=== PATIENT | male | born 2005 | race Two or more races ===

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

== ENCOUNTER 2024-09-26 15:39 | Emergency (ER) | payer OTHER, SELFPAY ==
--- NOTE | ~2024-09-26 | CT_ITS ---
CLINICAL HISTORY: abd pain, nausea, and vomiting CT abdomen and pelvis with contrast Comparison: CT/SR - CT ABDOMEN PELVIS WITH IV CONTRAST - 02/12/23 16:[address]/[place]/SR - CT CHEST WITH IV CONTRAST - 02/12/23 16:49 EST Findings: No consolidation or effusion. The gallbladder and solid organs are within normal limits. No renal stones. No bowel obstruction, pneumoperitoneum, or pneumatosis. Pelvic contents unremarkable. Normal appendix. The bones are intact. IMPRESSION: No acute findings. This document has been electronically signed by: Manuel Perkins DO on 09/26/2024 21:04:49
[2024-09-26 16:14] VITALS: BP 115/67; PULSE 95; RESP 16; TEMP 36.1; O2SAT 100; BMI 33.9
--- NOTE | 2024-09-26 16:15 | ED.GENADULT ---
HPI - General Adult General Chief complaint: Abdominal Pain Stated complaint: Lots of vomitting, diarrhea, both arms asleep Time Seen by Provider: 09/26/24 18:12 Source: patient Mode of arrival: ambulatory Limitations: no limitations History of Present Illness ED Provider: Nga Ward PA-C HPI narrative: Patient is a 18 year old male with past medical history of asthma presenting to ER on 09/26 with chief complaint of nausea, vomiting, and diarrhea since yesterday morning. He states his symptoms started yesterday after he ate a bowl of cereal. Since then, he has been able to tolerate PO liquids, but solids cause him to vomit. Last episode of diarrhea was this morning. He has had associated diffuse abdominal pain that he states was relieved by sublingual ondansetron he received in triage. He reports being afebrile at home since yesterday, highest temperature being 99.4 F late last night (note he was febrile to 102.8 F in triage). He has had similar occurrences before, and states he was last seen at [facility] in 2023 and was diagnosed with an umbilical hernia. He believes he was told his umbilical hernia was the cause of his symptoms, and was unsure of the CT scan result, states he was never recommended to have surgery. He denies previous abdominal surgeries. He denies sick contacts or recent travel. He denies recent antibiotic use. He denies hematemesis, hematochezia, melena, dizziness, chest pain, shortness of breath, genitourinary symptoms, or any other symptoms. Onset (ago): day(s) Related Data Previous Rx's ?Medication ?Instructions ?Recorded ibuprofen 600 mg tablet 600 mg PO Q6H PRN pain #20 tabs 07/23/20 lidocaine 5 % topical patch 1 patch topical DAILY #15 ea 01/08/23 (Lidoderm) naproxen 500 mg tablet 500 mg PO Q8-12H PRN pain (scale 01/08/23 score 4-6) #20 tabs ondansetron 4 mg disintegrating 4 mg PO TID PRN nausea and 01/22/23 tablet vomiting 5 days #10 tabs omeprazole 20 mg capsule,delayed 20 mg PO DAILY #30 caps 06/09/23 release ondansetron 4 mg disintegrating 4 mg PO Q8H PRN nausea and 06/09/23 tablet vomiting #20 tabs ondansetron 4 mg disintegrating 4 mg PO Q8H PRN nausea and 09/26/24 tablet vomiting #12 tabs Allergies Allergy/AdvReac Type Severity Reaction Status Date / Time cephalexin (Keflex) Allergy Unknown Hives Verified 09/26/24 16:17 From KEFLEX Allergy Unknown HIVES Uncoded 10/21/23 20:25 mosquitoes Allergy Unknown Hives Uncoded 10/21/23 20:25 Review of Systems Constitutional: Constitutional: Reports no additional constitutional complaints, Denies chills, Denies fever(s) and Denies night sweats Eyes: Eyes: Reports no additional eye complaints, Denies blurry vision, Denies change in vision, Denies diplopia, Denies eye discharge, Denies loss of vision and Denies eye pain ENT: Denies dizziness Cardiovascular: Cardiovascular: Reports no additional cardiovascular complaints, Denies chest pain, Denies lightheadedness, Denies Loss of Consciousness and Denies dyspnea Respiratory: Respiratory: Reports no additional respiratory complaints and Denies dyspnea Gastrointestinal: Gastrointestinal: Reports as per HPI, Reports no additional gastrointestinal complaints, Reports abdominal pain, Denies melena, Denies hematochezia, Reports diarrhea, Reports nausea and Reports vomiting Genitourinary: Genitourinary: Reports no additional male genitourinary complaints, Denies hematuria, Denies oliguria, Denies difficulty urinating, Denies dysuria, Denies urinary frequency, Denies urinary hesitancy, Denies urinary incontinence and Denies urinary urgency Musculoskeletal: Musculoskeletal: Reports no additional musculoskeletal complaints, Denies numbness and Denies tingling Neurologic: Denies dizziness, Denies loss of vision, Denies numbness and Denies tingling Psychiatric: Psychiatric: Reports no additional psychiatric complaints Endocrine: Endocrine: Reports no additional endocrine complaints Hematologic/Lymphatic: Hematologic/Lymphatic: Reports no additional hematologic/lymphatic complaints Allergic/Immunologic: Allergic/Immunologic: Reports no additional allergic/immunologic complaints PMFSH Past Medical History Attestation statement: The following information was validated with the patient. Source: old records reviewed and nursing notes reviewed Medical History Asthma Social History Social History Patient Tobacco Use Status: Never used Tobacco Smoked in Last 30 Days: No Use of substances other than those prescribed or required for medical reasons: No Advance Directives: No Advance Directives Information Provided: No Current occupational status: employed Current occupation: rt hand Physical Exam ED Vital Signs: Vital Signs - 24 hr 09/26/24 16:14 09/26/24 16:58 09/26/24 17:01 Temperature 96.9 F 102.4 F H 102.8 F H Pulse Rate 95 82 Respiratory Rate 16 16 Blood Pressure 115/67 117/77 Pulse Oximetry 100 97 Oxygen Delivery Method Room Air Room Air 09/26/24 19:07 09/26/24 21:34 Temperature 101.0 F H 98.5 F Pulse Rate 75 69 Respiratory Rate 16 16 Blood Pressure 123/77 106/70 Pulse Oximetry 100 100 Oxygen Delivery Method Room Air Room Air BMI result Body Mass Index 33.9 Const General: cooperative, no acute distress, alert and awake Nutritional Appearance: thin Orientation/consciousness: patient oriented x3 HENMT Head: Yes normal to inspection and Yes atraumatic Ears: hearing grossly normal bilaterally and external ears normal General nose exam: Normal external nose present, no nasal discharge noted and no epistaxis Face and sinus: Yes normal facial exam, No abrasion and No laceration Mouth: Normal oral and palatal mucosa present, no drooling and no muffled voice Eyes General: appearance normal, both eyes and all related structures Periorbital: periorbital findings normal Eyelids: Yes eyelids normal Conjunctivae: conjunctivae normal Pupils: Equal, round and reactive pupils present EOM: EOMs intact bilaterally Neck Neck: Yes normal visual inspection, Yes full ROM and Yes no lymphadenopathy Resp Effort & Inspection: normal respiratory effort and able to speak in complete sentences GI Inspection: Yes normal to inspection and No visible herniation Palpation (GI): Soft to palpation, not firm, Tenderness to palpation present (GI) (diffusely tender to palpation), no guarding, not rigid and No Rebound tenderness present Neuro General: patient oriented x3, moves all extremities and CN's II-XI intact bilaterally Cranial nerves: Yes Equal, round and reactive pupils present Cognition (Neuro): normal cognition Extrem General: Yes normal to inspection, Yes full ROM and Yes capillary refill normal Psych Appearance: grossly normal Mental Status: mental status grossly normal Affect: normal affect Attitude: cooperative Thought process: Normal thought process present Thought content: Normal thought content present Insight: Good insight present (Psych) Course Course Course Narrative: Reema Montenegro [employer]PER[employer] 09/26 5805 This is a rapid medical exam. Deferred additional HPI, ROS, PE to primary provider. 18 yo male with history of asthma, umbilicul hernia here with complaints of vomiting, diarrhea, generalized abdominal pain x 2 days. Will obtain labs, UA, give SL zofran. VSS Reevaluation(s) Reevaluation #1: I Marlyn Hawthorne PA-C have accepted care of the patient at signed out pending CT abdomen and pelvis and final disposition CT abdomen and pelvis:Findings: No consolidation or effusion. The gallbladder and solid organs are within normal limits. No renal stones. No bowel obstruction, pneumoperitoneum, or pneumatosis. Pelvic contents unremarkable. Normal appendix. The bones are intact. IMPRESSION: No acute findings. The patient is feeling much better in his eager for discharge Medications Administered Discontinued Medications Generic Name Dose Route Start Last Admin Trade Name Freq PRN Reason Stop Dose Admin Acetaminophen 975 mg 09/26/24 18:11 09/26/24 18:14 Acetaminophen 325 Mg Tablet PO 09/26/24 18:12 975 mg ONCE ONE Administration Sodium Chloride 1,000 mls @ 999 mls/hr 09/26/24 18:15 09/26/24 19:42 Ns IV 09/26/24 19:15 Infused .Q1H1M MATIAS Infusion Iohexol 100 ml 09/26/24 19:33 09/26/24 19:33 Iohexol 350 Mg/Ml 100 Ml Infus..Btl IV 09/26/24 19:34 85 ml ONCE ONE Administration Ketorolac Tromethamine 15 mg 09/26/24 20:34 09/26/24 20:42 Ketorolac Tromethamine 15 Mg/Ml Vial IVPUSH 09/26/24 20:35 15 mg ONCE ONE Administration Ondansetron HCl 4 mg 09/26/24 16:15 09/26/24 16:36 Ondansetron Odt 4 Mg Tab.Rapdis TRANSLINGU 09/26/24 16:16 4 mg ONCE ONE Administration Medical Decision Making Medical Decision Making [facility] Narrative: Patient is a 18 year old assigned male at with a history of an umbilical hernia presenting to the emergency department today with abdominal pain, nausea, vomiting, and diarrhea after ingesting a bowel of cereal. Patient's physical exam showed diffuse abdominal pain and a febrile individual with no guarding or rigidity. Patient's blood work was unremarkable. Patient's urine showed no acute process. Patient's CT abd/pelvis is pending. I explained my physical exam findings as well as all test results to the patient. I answered all questions asked by the patient. Patient received IV fluids, tylenol, and toradol which, upon re-evaluation, he stated it helped his symptoms significantly. Patient's disposition will be determined after CT abdomen/pelvis results. Patient signed out to KATELYN Hawthorne. Differential Diagnosis Differential Diagnoses: The differential diagnosis associated with the presentation includes Gastroenteritis Abdominal pain Nausea Vomiting Diarrhea Viral illness Appendicitis Admission/Observation Consideration of admission/observation: Escalation of care including admission/observation considered Patient's disposition will be determined after CT abd/pelvis results. Lab Data [facility] Lab Attestation statement: I reviewed the patient's lab results. My interpretation of these results are in the [facility] Rationale portion of this note. 09/26/24 16:41 09/26/24 16:41 Labs: Lab Results 09/26/24 09/26/24 Range/Units 16:41 18:55 WBC 6.8 (4.8-10.8) X10*3/uL RBC 4.79 (4.60-5.80) X10*6/uL Hgb 14.6 (14.0-18.0) g/dl Hct 40.9 L (42.0-52.0) % MCV 85.4 (80.0-98.0) fL MCH 30.5 (27.0-33.0) pg MCHC 35.7 (31.0-36.0) g/dl RDW 11.6 (11.0-16.0) % Plt Count 229 (160-400) X10*3/uL MPV 9.8 (9.4-12.4) fL Immature Gran % (Auto) 0.3 (0.0-0.4) % Neut % (Auto) 84.5 H (45-73) % Lymph % (Auto) 8.8 L (20-40) % Nobles % (Auto) 6.3 (2-11) % Eos % (Auto) 0.0 (0-4) % Baso % (Auto) 0.1 (0-2) % Lymph # (Auto) 0.6 L (1.2-4.9) X10*3/uL Nobles # (Auto) 0.4 (0.1-1.2) X10*3/uL Eos # (Auto) 0.0 (0.0-0.4) X10*3/uL Baso # (Auto) 0.0 (0.0-0.2) X10*3/uL Abs Immat Gran (auto) 0.02 (0.00-0.03) X10*3/uL Absolute Neuts (auto) 5.8 (2.0-8.3) x10*3/uL Absolute Nucleated RBC 0.000 (0.0-0.012) X10*3/uL Nucleated RBC % (auto) 0.0 (0.0-0.2) /100WBC Sodium 137 (135-145) mmol/L Potassium 3.9 (3.3-5.1) mmol/L Chloride 104 (96-108) mmol/L Carbon Dioxide 23 (22-29) mmol/L Anion Gap 14 (12-20) BUN 12 (9-16) mg/dL Creatinine 0.91 (0.5-1.4) mg/dL Estim Creat Clear Calc 141.0 Estimated GFR > 60 Random Glucose 103 (60-115) mg/dL Calcium 9.0 D (8.4-10.2) mg/dL Total Bilirubin 1.1 H (0.0-1.0) mg/dL Direct Bilirubin 0.4 (0.0-0.5) mg/dL AST 18 (5-37) U/L ALT 18 (0-40) U/L Alkaline Phosphatase 105 (39-117) U/L Total Protein 7.1 (6.5-8.0) g/dL Albumin 4.8 (3.5-5.0) g/dL Beta HCG, Quant < 2 mIU/mL Urine Color Yellow Urine Appearance Clear Urine pH 5.5 (5.0-9.0) Ur Specific [place] 1.025 (1.005-1.025) Urine Protein Trace (Neg-Trace) mg/dL Urine Glucose (UA) Negative (Negative) mg/dL Urine Ketones Trace (Negative) mg/dL Urine Blood Trace H (Negative) Urine Nitrite Negative (Negative) Ur Leukocyte Esterase Negative (Negative) Urine RBC 0-2 (0-2) /HPF Urine WBC 0-5 (0-5) /HPF Ur Squamous Epith Cells 0-2 (0-2) /HPF Urine Bacteria None Seen (None Seen) Hyaline Casts 0-2 (0-2) /LPF Influenza Type A (PCR) NEGATIVE (Negative) Influenza Type B (PCR) NEGATIVE (Negative) RSV RNA Qual (PCR) NEGATIVE (Negative) SARS-CoV-2 RNA (RT-PCR) NEGATIVE (Negative) Discharge Plan Discharge Clinical Impression: Viral gastroenteritis Abdominal pain Qualifiers: Abdominal location: generalized Qualified Code(s): R10.84 - Generalized abdominal pain Fever Qualifiers: Fever type: unspecified Qualified Code(s): R50.9 - Fever, unspecified Patient Disposition: Home, Self-Care Instructions: Gastroenteritis (ED) Additional Instructions: All of your screening labs were normal, there was no acute finding on the CT scan of your abdomen. You likely have a virus causing your symptoms. See home care instructions. Uses Zofran as needed for nausea. Follow up with primary care as needed. Prescriptions: New ondansetron 4 mg tablet,disintegrating 4 mg PO Q8H PRN (Reason: nausea and vomiting) Qty: 12 0RF No Action ibuprofen 600 mg tablet 600 mg PO Q6H PRN (Reason: pain) Qty: 20 0RF lidocaine [Lidoderm] 5 % adhesive patch,medicated 1 patch topical DAILY Qty: 15 0RF Rx Instructions: leave on most painful area for up to 12 hrs naproxen 500 mg tablet 500 mg PO Q8-12H PRN (Reason: pain (scale score 4-6)) Qty: 20 0RF ondansetron 4 mg tablet,disintegrating 4 mg PO TID PRN (Reason: nausea and vomiting) 5 Days Qty: 10 0RF ondansetron 4 mg tablet,disintegrating 4 mg PO Q8H PRN (Reason: nausea and vomiting) Qty: 20 0RF omeprazole 20 mg capsule,delayed release(DR/EC) 20 mg PO DAILY Qty: 30 0RF Stand Alone Forms: Work/School Release Print Language: Urdu
[2024-09-26 16:50] LABS: MANUAL DIFF FLAG NO
[2024-09-26 16:52] LABS: Hematocrit 40.9 % (42.0-52.0); Hemoglobin 14.6 g/dl (14.0-18.0); Imm Gran Abs Auto 0.02 X10*3/uL (0.00-0.03); Imm Gran Pct Auto 0.3 % (0.0-0.4); Lymphocytes Absolute Auto 0.6 X10*3/uL (1.2-4.9); Mean Corpuscular HGB Conc 35.7 g/dl (31.0-36.0); Mean Corpuscular Hemoglobin 30.5 pg (27.0-33.0); Mean Corpuscular Volume 85.4 fL (80.0-98.0); NRBC Abs Auto 0.000 X10*3/uL (0.0-0.012); NRBC Pct Auto 0.0 /100WBC (0.0-0.2); Platelet Count 229 X10*3/uL (160-400); Red Blood Count 4.79 X10*6/uL (4.60-5.80); White Blood Count 6.8 X10*3/uL (4.8-10.8)
[2024-09-26 16:58] VITALS: TEMP 39.1
[2024-09-26 17:01] VITALS: BP 117/77; PULSE 82; RESP 16; TEMP 39.3; O2SAT 97
[2024-09-26 17:06] LABS: Alanine Aminotransferase 18 U/L (0-40); Albumin Level 4.8 g/dL (3.5-5.0); Alkaline Phosphatase 105 U/L (39-117); Anion Gap 14 (12-20); Aspartate Amino Transferase 18 U/L (5-37); Blood Urea Nitrogen 12 mg/dL (9-16); Calcium 9.0 mg/dL (8.4-10.2); Carbon Dioxide 23 mmol/L (22-29); Chloride 104 mmol/L (96-108); Creatinine Clr Calc Pharmacy 141.0; Estimated Glomerular Filt Rate > 60; Potassium 3.9 mmol/L (3.3-5.1); Sodium 137 mmol/L (135-145); Total Protein 7.1 g/dL (6.5-8.0)
--- NOTE | 2024-09-26 17:08 | PC.NURSE ---
Patient presents to Ed c/o n/v for the past two days with abdomen pain around umbilicus rated 8/10, Denies sick contacts, SOB, dizziness, lightheadedness. Temp 102.8 rectal, all other VSS and up to date. Provider to see patient. Plan of care on going
[2024-09-26 17:28] LABS: Resp Syncy Virus RNA Qual PCR NEGATIVE (Negative); SARS COV2 PCR INHOUSE NEGATIVE (Negative)
--- NOTE | 2024-09-26 18:56 | PC.NURSE ---
20gIV placed in the right AC - IVF infusing per provider order. urine specimen obtained/sent to lab. pt waiting for CT to be completed at this time. partner bedside for support. plan of care ongoing. call carroll placed within reach.
[2024-09-26 19:03] LABS: Appearance Urine Clear; Glucose Urine UA Negative (Negative); PH 5.5 (5.0-9.0); Specific Gravity - Urine 1.025 (1.005-1.025); UMIC TRIGGER UACC YES
[2024-09-26 19:07] VITALS: BP 123/77; PULSE 75; RESP 16; TEMP 38.3; O2SAT 100
--- NOTE | 2024-09-26 19:27 | PC.NURSE ---
pt to CT at this time. plan of care ongoing.
[2024-09-26] MEDS: iohexoL 350 MG/ML 100 ML INFUS..BTL IV (19:33)
--- NOTE | 2024-09-26 20:45 | PC.NURSE ---
pt medicated per provider order. CT results still pending at this time. plan of care ongoing.
[2024-09-26 21:34] VITALS: BP 106/70; PULSE 69; RESP 16; TEMP 36.9; O2SAT 100
[2024-09-26 23:24] VITALS: BP 106/70; PULSE 69; RESP 16; TEMP 36.9; O2SAT 100
== END 2024-09-26 23:25 | disposition home or self-care (01) ==
PROVIDERS: Nurse Practitioner Family; Physician Assistant Medical; Emergency Provider Emergency Medicine
DX: A08.4 Viral intestinal infection, unspecified (principal); R10.84 Generalized abdominal pain; R50.9 Fever, unspecified; R11.2 Nausea with vomiting, unspecified; Z03.818 Encounter for observation for suspected exposure to other biological agents ruled out
CPT/HCPCS: 74177; 80048; 80076; 81001; 81003; 84702; 85025; 87637; 96361; 96374; 99284; 99285; J1885; Q9967

== ENCOUNTER → 2024-09-26 18:13 | Outpatient (BNV) | payer OTHER, SELFPAY | PROVIDERS: Emergency Provider Emergency Medicine; Visit Provider Family Medicine | DX: R11.2 Nausea with vomiting, unspecified (principal) | CPT/HCPCS: 74177 ==